=== PATIENT | male | born 1990 | race Caucasian/White ===

== ENCOUNTER 2018-09-21 17:25 | Emergency (ER) | payer OTHER ==
[~2018-09-21] VITALS: Ht 182.9 cm; Wt 69.4 kg
[2018-09-21] MEDS ORDERED: MAALOX/HYOSCYAMINE/LIDOCAINE 45 ML BTL PO ONE (18:00)
[2018-09-21 18:31] LABS: BASOPHILS # (AUTO) 0.06 x10^3/uL (0-0.1); BASOPHILS % (AUTO) 0 % (0-1); EOSINOPHILS # (AUTO) 0.24 x10^3/uL (0-0.4); EOSINOPHILS % (AUTO) 2 % (1-7); LYMPHOCYTES # (AUTO) 2.61 x10^3/uL (1-3.4); LYMPHOCYTES % (AUTO) 18 % (22-44); MD NO; MEAN CORPUSCULAR HEMOGLOBIN 29.3 pg (27.5-34.5); MEAN CORPUSCULAR HGB CONC 34.3 g/dL (33.2-36.2); MEAN CORPUSCULAR VOLUME 85.2 fL (81-97); MEAN PLATELET VOLUME 7.8 fL (7.4-10.4); MONOCYTES # (AUTO) 1.23 x10^3/uL (0.2-0.8); MONOCYTES % (AUTO) 9 % (2-9); NEUTROPHILS % (AUTO) 71 % (42-75); PLATELET COUNT 228 x10^3/uL (130-400); RED BLOOD COUNT 5.54 x10^6/uL (4.38-5.82); RED CELL DISTRIBUTION WIDTH 13.8 % (9.4-14.8)
[2018-09-21] MEDS ORDERED: MAALOX/HYOSCYAMINE/LIDOCAINE 45 ML BTL ONE (18:32)
[2018-09-21 18:42] LABS: ALANINE AMINOTRANSFERASE 21 U/L (12-78); ALBUMIN 4.6 g/dL (3.4-5.0); ANION GAP 10 mmol/L (5-15); CALCIUM 9.1 mg/dL (8.5-10.1); CHLORIDE 105 mmol/L (98-107); CREATININE 1.03 mg/dL (0.7-1.3)
[2018-09-21 18:44] LABS: ALKALINE PHOSPHATASE 120 U/L (45-117); BILIRUBIN,TOTAL 1.2 mg/dL (0.2-1.0); TOTAL PROTEIN 8.3 g/dL (6.4-8.2)
[2018-09-21 19:34] VITALS: BP 132/65
[2018-09-21] MEDS ORDERED: FAMOTIDINE 20 MG TABLET ONE (19:55)
[2018-09-21] MEDS ORDERED: MORPHINE SULFATE 4 MG/ML, 1ML ONE (19:56)
[2018-09-21] MEDS ORDERED: ONDANSETRON ODT 4 MG ONE (19:56)
[2018-09-21] MEDS ORDERED: MORPHINE SULFATE 4 MG/ML, 1ML IVPush PRN (20:00)
[2018-09-21] MEDS ORDERED: ONDANSETRON ODT 4 MG PO ONE (20:00)
[2018-09-21] MEDS ORDERED: FAMOTIDINE 20 MG TABLET PO ONE (20:00)
[2018-09-21] MEDS ORDERED: SODIUM CHLORIDE FLUSH 10ML SYR IVF ONE (20:00)
[2018-09-21] MEDS ORDERED: OMNIPAQUE 350 MG/ML, 100ML BOTTLE ONE (20:06)
[2018-09-21 20:26] LABS: MICROSCOPIC NOT IND
[2018-09-21 20:31] LABS: CULTURE INDICATED? NO
== END 2018-09-21 21:09 | disposition home or self-care (01) ==
LOC: ED 19:27
DX: R10.84 Generalized abdominal pain (principal)
CPT/HCPCS: 36415; 74177; 76700; 80053; 81003; 83690; 85025; 86677; 96374; 99284; Q0162; Q9967

== ENCOUNTER 2019-02-01 14:12 | Emergency (ER) | payer OTHER ==
[~2019-02-01] VITALS: Ht 182.9 cm; Wt 72.5 kg
[2019-02-01] MEDS ORDERED: MAALOX/HYOSCYAMINE/LIDOCAINE 45 ML BTL ONE (14:38)
--- NOTE | 2019-02-01 14:43 | NUR ---
PT AMBULATORY TO ROOM 15 W/ C/O ACID REFLUX X MONTHS. PT STATES PAIN WORSE AFTER EATING. PT DENIES ANY GI HX. PT RESTINGO N LIGIA. RHONDA. VSS. MONITORS APPLIED. WARM BLANKET PROVIDED. MEDICATED PER DEC.
[2019-02-01 14:49] VITALS: BP 120/73
--- NOTE | 2019-02-01 14:49 | NUR ---
PT RESTING ON GURNEY. ELLIS. PT VERBALIZES IMPROVEMENT AFTER GI COCKTAIL.
[2019-02-01] MEDS ORDERED: MAALOX/HYOSCYAMINE/LIDOCAINE 45 ML BTL PO ONE (15:00)
== END 2019-02-01 15:00 | disposition home or self-care (01) ==
LOC: ED 14:40
DX: K29.50 Unspecified chronic gastritis without bleeding (principal); R12 Heartburn
CPT/HCPCS: 99283